=== PATIENT | female | born 1995 | race Caucasian/White ===

== ENCOUNTER 2018-02-06 11:53 | Emergency (ER) | payer BC ==
[~2018-02-06] VITALS: Ht 162.6 cm; Wt 90.7 kg
[~2018-02-06 11:53] MED LIST: ACID CONTROLLER20 MG PO; ANUSOL-HC30 GM PR; DELTASONE20 MG PO; DOXYCYCLINE HY100 MG PO; FOLIC ACID1 MG; FOLIC ACID1 MG PO; GABAPENTIN100 MG PO; HYDROMORPHONE HC2 MG PO; HYDROMORPHONE HC4 MG PO; LORAZEPAM0.5 MG PO; LOVENOX40 MG SUB-Q; METHYLPREDNISOLO4 MG PO; MONTELUKAST SOD10 MG PO; NEXPLANON68 MG SUB-Q; NORCO 5-325 TA1 EACH PO; OMEPRAZOLE20 MG PO; ONDANSETRON HCL4 MG PO; PEPCID20 MG PO; PHENERGAN25 MG PO; PHENERGAN25 MG RC; PRENA1 CHEW TA1.4 MG PO; PRENATAL PLUS1 EAC2 PO; PROMETHAZINE12.5 M1 PO; RITUXAN100 MG/10 IV; STOOL SOFTENER100 MG PO; TAMIFLU75 MG PO; TESSALON PERLE100 MG PO; TYLENOL325 MG PO; UNISOM25 MG PO; ZOFRAN ODT4 MG PO; ZOFRAN4 MG PO
[2018-02-06] MEDS ORDERED: PROCHLORPERAZIN10 MG PO (16:26)
[2018-02-06] MEDS ORDERED: ONDANSETRON ODT8 MG PO (16:26)
== END 2018-02-06 16:45 | disposition home or self-care (01) ==
LOC: ED 11:53
DX: K29.70 Gastritis, unspecified, without bleeding (principal); R51 Headache; M79.1 Myalgia; Z88.8 Allergy status to other drugs, medicaments and biological substances; Z88.5 Allergy status to narcotic agent; Z79.899 Other long term (current) drug therapy
CPT/HCPCS: 36415; 70450; 80053; 81001; 83690; 84703; 85025; 87088; 96361; 96374; 96375; 99284; J0780; J1170; J2405; J7030

== ENCOUNTER 2018-06-20 13:04 | Day surgery (SDC) | payer OTHER ==
[~2018-06-20] VITALS: Ht 162.6 cm; Wt 90.7 kg
[~2018-06-20 13:04] MED LIST changes: +ONDANSETRON ODT8 MG PO; +PROCHLORPERAZIN10 MG PO
--- NOTE | 2018-06-20 15:26 | NUR ---
06/20/18 1526 Davina Romero 1521 PATIENT ARRIVES TO PACU AWAKE WITH EYES CLOSED, ANSWERS QUESTIONS APPROPRIATELY. PATIENT IS TEARFUL, BUT RELATES IT TO HER "HORMONES" DENIES PAIN OR NAUSEA. RESP EVEN AND UNLABORED, ARRIVES ON NC @ 3LITERS, TURNED OFF AFTER ARRIVAL TO PACU.
--- NOTE | 2018-06-22 13:08 | OR ---
[facility] [address] [place], [place] [address] Signed DATE OF OPERATION: 06/20/2018 SURGEON: Froylan Vazquez MD PREOPERATIVE DIAGNOSES: 1. Persistent right lower abdominal pain. 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 2. Prior history of mediastinal lymphoma in remission, 2015. 3. History of appendectomy and cholecystectomy. POSTOPERATIVE DIAGNOSIS: Normal-appearing colon and ilium 8-10 cm. PROCEDURES PERFORMED: Total colonoscopy to cecum with intubation of the ileum and biopsies. ANESTHESIA: Intravenous sedation fentanyl 150 mcg, Versed 8 mg. INDICATION FOR PROCEDURE: This 23-year-old white woman is a patient of Dr. Flores and known to me from the past having undergone laparoscopic cholecystectomy in November of 2015, here with subsequent findings of a mediastinal lymphoma on chest x-ray. She was at that time. She underwent chemotherapy concurrently with her and is now in remission, and her child was born well, and doing well at this point. She subsequently developed appendicitis for which appendectomy was performed in 2017. More recently, she has had consistent and persistent right lower abdominal pain, for which a CT scan shows an area of thickening of the ileum. Concern is maintained for possible recurrent lymphoma versus the possibility of Crohn's disease. She is admitted to undergo colonoscopy at this time. She understands the risks of bleeding, infection, and perforation. Of special note, she had enigmatic abdominal pain in childhood, for which extensive workup had been undertaken with no underlying cause identified. This included at least three colonoscopies in childhood. She was even evaluated at [facility] for this problem, but no specific etiology could be determined for it. She understands the risks of bleeding, infection, and perforation related to colonoscopy and wished to proceed. FINDINGS: Electronically Signed By: FROYLAN VAZQUEZ MD 06/22/18 1308 PATIENT NAME: GUANAKITO PÉREZ OPERATIVE REPORT DATE OF : [birth year] REPORT #: [id number] PHYSICIAN: FROYLAN VAZQUEZ MD PCP: DARIANA FLORES MD REPORT IS CONFIDENTIAL AND NOT TO BE RELEASED WITHOUT AUTHORIZATION [facility] [address] [place], [place] [address] Signed The prep was quite excellent. Complete colonoscopy was undertaken to the cecum. An intubation of the ileum was accomplished extending at about 10 cm in length. There was no lesion identified from the ileum more distalward. DESCRIPTION OF PROCEDURE: The patient was brought to the endoscopy suite and placed in lateral decubitus position, given intravenous sedation to the point of slurred speech and nystagmus. Digital rectal examination was normal. Full cardiopulmonary monitoring was maintained. An Olympus video colonoscope was passed in the rectum and manipulated throughout the colon. Immediately noted was rather significant intolerance to the discomfort of colonoscopy. Additional sedation was given as needed. Consideration was made for possible higher level anesthesia with propofol. However, with additional sedation, the patient's time and meticulous care the scope was able to pass through ultimately to the cecum without problem. The prep was quite excellent. The ileocecal valve was identified with minimal manipulations. The ileum was entered. It appeared normal. Scope was advanced in the ileum as much as possible, tolerated, and extended at least 10 cm possibly further, but there was no sign of intraluminal lesion. Biopsies were taken of the most proximal portion of the ileum, as well as the distal ileum and return to the cecum. The cecum appeared entirely normal. Scope was carefully withdrawn. Examination throughout showed no sign of pathologic abnormality whatsoever. A biopsy was taken of the rectum to assess for occult colitis. Scope was removed. The patient was taken to recovery room in good condition. CONCLUDING DIAGNOSIS: Normal colon and terminal ileum. No lesion identified to correlate to CT scan. PLAN: We will recommend small bowel follow-through. If there is a persistent lesion, then I would recommend laparoscopy with laparoscopic segmental resection of the lesion to assess for possible recurrent lymphoma versus a stricture related to Crohn's disease. MD LIU Pino/MODL /[id number] Electronically Signed By: FROYLAN VAZQUEZ MD 06/22/18 1308 PATIENT NAME: GUANAKITO PÉREZ OPERATIVE REPORT DATE OF : [birth year] REPORT #: [id number] PHYSICIAN: FROYLAN VAZQUEZ MD PCP: DARIANA FLORES MD REPORT IS CONFIDENTIAL AND NOT TO BE RELEASED WITHOUT AUTHORIZATION [facility] [address] [place], [place] [address] Signed cc: Dr. Flores. Copies: ~ Electronically Signed By: FROYLAN VAZQUEZ MD 06/22/18 1308 PATIENT NAME: GUANAKITO PÉREZ CLIVE MCKENZIE OPERATIVE REPORT DATE OF : [birth year] REPORT #: [id number] PHYSICIAN: FROYLAN VAZQUEZ MD PCP: DARIANA FLORES MD REPORT IS CONFIDENTIAL AND NOT TO BE RELEASED WITHOUT AUTHORIZATION
== END 2018-06-20 15:55 | disposition home or self-care (01) ==
LOC: OPS 13:04 → DS 14:00 → OPS 14:00
PROVIDERS: Surgery
PROC: 0DBP8ZX Excision of Rectum, Via Natural or Artificial Opening Endoscopic, Diagnostic (ICD-10-PCS; 2018-06-20)
PROC: 0DBB8ZX Excision of Ileum, Via Natural or Artificial Opening Endoscopic, Diagnostic (ICD-10-PCS; principal; 2018-06-20 14:00)
DX: R10.31 Right lower quadrant pain (principal); E86.0 Dehydration; D70.2 Other drug-induced agranulocytosis; T45.1X5A Adverse effect of antineoplastic and immunosuppressive drugs, initial encounter; C85.99 Non-Hodgkin lymphoma, unspecified, extranodal and solid organ sites; K64.5 Perianal venous thrombosis; K80.50 Calculus of bile duct without cholangitis or cholecystitis without obstruction; F32.9 Major depressive disorder, single episode, unspecified; K21.9 Gastro-esophageal reflux disease without esophagitis; D64.9 Anemia, unspecified; E66.9 Obesity, unspecified; Z90.49 Acquired absence of other specified parts of digestive tract; Z88.5 Allergy status to narcotic agent; Z88.1 Allergy status to other antibiotic agents; Z88.6 Allergy status to analgesic agent; Z88.8 Allergy status to other drugs, medicaments and biological substances; Z68.35 Body mass index [BMI] 35.0-35.9, adult
CPT/HCPCS: 99153; G0500; J2250; J3010; J7120

== ENCOUNTER 2020-03-16 10:56 | Emergency (ER) | payer OTHER ==
[~2020-03-16] VITALS: Ht 162.6 cm; Wt 87.5 kg
[2020-03-16] MEDS ORDERED: FOLIXAPURE5000 UNIT PO (11:08)
[2020-03-16] MEDS ORDERED: PEPCID20 MG PO (13:54)
[2020-03-16] MEDS ORDERED: NORCO 5-325 TA1 EACH PO (13:54)
--- NOTE | 2020-03-16 15:32 | EKG ---
[facility] [address] [facility] [place] [address] Signed Normal sinus rhythm Normal ECG When compared with ECG of 06-DEC-2016 15:06, Questionable change in QRS axis Confirmed by HOMERO ZARAGOZA MD ([id number]) on 03/16/2020 3:31:51 PM Electronically Signed By: HOMERO ZARAGOZA MD 03/16/20 1532 PATIENT NAME: GUANAKITO PÉREZ MAGALY Electrocardiogram DATE OF : [birth year] PHYSICIAN: HOMERO ZARAGOZA MD REPORT #: [id number] REPORT IS CONFIDENTIAL AND NOT TO BE RELEASED WITHOUT AUTHORIZATION
== END 2020-03-16 17:17 | disposition home or self-care (01) ==
LOC: ED 10:56
DX: R07.81 Pleurodynia (principal); Z88.6 Allergy status to analgesic agent; Z88.5 Allergy status to narcotic agent; Z88.8 Allergy status to other drugs, medicaments and biological substances; Z79.899 Other long term (current) drug therapy
CPT/HCPCS: 71046; 71260; 80053; 84484; 85025; 85379; 93005; 93010; 99285-25; J1885; J3010; Q9967

== ENCOUNTER 2020-08-23 00:16 | Emergency (ER) | payer OTHER ==
[~2020-08-23] VITALS: Ht 162.6 cm; Wt 95.3 kg
[~2020-08-23 00:16] MED LIST changes: +FOLIXAPURE5000 UNIT PO
[2020-08-23] MEDS ORDERED: AMOXICILLIN500 MG PO ×2 (00:38)
[2020-08-23] MEDS ORDERED: KETOROLAC TROMET5 ML OPTH (01:29)
--- NOTE | 2020-08-23 10:26 | NUR ---
CALL FROM [facility] REGARDING KETORALAC EYE DROPS. [facility] REPORTS THAT THERE IS NOT A STRENGTH ON PRESCRIPTION. TRANSFERED CALL TO ER.
== END 2020-08-23 01:45 | disposition home or self-care (01) ==
LOC: ED 00:16
DX: H00.014 Hordeolum externum left upper eyelid (principal); Z88.8 Allergy status to other drugs, medicaments and biological substances; Z88.5 Allergy status to narcotic agent; Z91.048 Other nonmedicinal substance allergy status; Z79.899 Other long term (current) drug therapy
CPT/HCPCS: 99283

== ENCOUNTER 2020-08-23 17:04 | Emergency (ER) | payer OTHER ==
[~2020-08-23] VITALS: Ht 162.6 cm; Wt 95.3 kg
[~2020-08-23 17:04] MED LIST changes: +AMOXICILLIN500 MG PO; +KETOROLAC TROMET5 ML OPTH
--- NOTE | 2020-08-24 13:54 | EKG ---
[facility] [address] [facility] [place], [place] [address] Signed Normal sinus rhythm Normal ECG When compared with ECG of 16-MAR-2020 11:03, No significant change was found Confirmed by ROCAEL MORALES DO ([id number]) on 08/24/2020 1:54:33 PM Electronically Signed By: ROCAEL MORALES DO 08/24/20 1354 PATIENT NAME: GUANAKITO PÉREZ CLIVE MCKENZIE Electrocardiogram DATE OF : [birth year] PHYSICIAN: ROCAEL MORALES DO REPORT #: [id number] REPORT IS CONFIDENTIAL AND NOT TO BE RELEASED WITHOUT AUTHORIZATION
== END 2020-08-23 23:10 | disposition home or self-care (01) ==
LOC: ED 17:04
DX: G43.909 Migraine, unspecified, not intractable, without status migrainosus (principal); Z88.8 Allergy status to other drugs, medicaments and biological substances; Z88.5 Allergy status to narcotic agent; Z91.048 Other nonmedicinal substance allergy status; Z79.899 Other long term (current) drug therapy
CPT/HCPCS: 70450; 80053; 81001; 83735; 84703; 85025; 93005; 93010; 96374; 96375; 96376; 99284-25; J0780; J1200; J1885; J2405; J7030; J7121

== ENCOUNTER 2022-11-08 03:44 | Emergency (ER) | payer OTHER ==
[~2022-11-08] VITALS: Ht 162.6 cm; Wt 95.3 kg
[~2022-11-08 03:44] MED LIST changes: +CEPHALEXIN500 M1 PO; +ONDANSETRON ODT4 MG PO
== END 2022-11-08 07:25 | disposition home or self-care (01) ==
LOC: ED 03:44
DX: R10.84 Generalized abdominal pain (principal); R11.10 Vomiting, unspecified; Z88.8 Allergy status to other drugs, medicaments and biological substances; Z88.5 Allergy status to narcotic agent; Z91.048 Other nonmedicinal substance allergy status; Z88.6 Allergy status to analgesic agent
CPT/HCPCS: 36415; 74177; 80053; 81001; 83690; 84703; 85025; 96361; 96375; 96376; 99284-25; J2405; J3010; J7030; Q9967